=== PATIENT | male | born 1930 | race Caucasian/White ===

== ENCOUNTER 2016-05-13 11:54 | Outpatient (CLI) | payer OTHER ==
[2016-05-13 13:16] LABS: FLU INTERNAL QC INTERNAL QC VALID; RAPID FLU A POSITIVE (NEGATIVE); RAPID FLU B NEGATIVE (NEGATIVE)
== END 2016-05-13 11:55 | disposition home or self-care (01) ==
LOC: LAB 11:54
PROVIDERS: ATTEND Nurse Practitioner Family
DX: R52 Pain, unspecified (principal); J02.9 Acute pharyngitis, unspecified
CPT/HCPCS: 87651; 87804; 87880

== ENCOUNTER 2017-06-10 12:32 | Outpatient (CLI) | payer OTHER | END 2017-06-10 12:33 | disposition home or self-care (01) | LOC: FCC-LAB 12:32 | PROVIDERS: ATTEND General Practice | DX: I10 Essential (primary) hypertension (principal); K21.9 Gastro-esophageal reflux disease without esophagitis; R25.3 Fasciculation; Z12.5 Encounter for screening for malignant neoplasm of prostate; Z79.899 Other long term (current) drug therapy; Z86.008 Personal history of in-situ neoplasm of other site | CPT/HCPCS: 36415; 80053; 80061; 81001; 83090; 83735; 85007; 85025 ==

== ENCOUNTER 2017-10-05 12:11 | Outpatient (CLI) ==
--- NOTE | 2017-10-05 13:21 | CT ---
EXAM: CT chest without contrast TECHNIQUE: Helical axial CT of the chest was performed without contrast with coronal and sagittal rec onstructions. COMPARISON: Chest x-ray from 08/08/2009 HISTORY: Trauma FINDINGS: Lung parenchyma: There is no mass or nodule or large effusion or infiltrate. There is no pneumothorax . There is some minimal atelectasis. There is old granulomatous disease. Mediastinum: No pathologic hilar or mediastinal adenopathy. There are advanced coronary calcification s. There is old granulomatous disease. There is no pericardial effusion. There is some mild calcific atherosclerosis of the aorta. There is no aortic aneurysm. Upper Abdomen: No focal or acute abnormality. Osseous structures: There is a minimally displaced fracture of the distal aspect of the right elevent h rib. No other rib fractures are identified. The underlying liver is intact. There has been prior lower cervical fusion. Surrounding soft tissues including the thyroid gland are normal. No supraclavicular or axillary adeno junaid. IMPRESSION: 1. Acute right eleventh rib fracture as described. There is no pneumothorax or lung contusion and t he liver appears intact. 2. Atherosclerotic changes as above. 3. Old granulomatous disease.
--- NOTE | 2017-10-05 14:12 | US ---
EXAM: Bilateral carotid artery Doppler History: Headache and dizziness. Technique: Multiple sonographic images through the bilateral internal carotid arteries were obtained . Color duplex Doppler was used to interrogate vascular flow. Findings: The right ICA peak systolic velocities within normal limits measuring 80 cm/sec. The right ICA/cca P SV ratio is normal at 1.0. The right vertebral artery is patent and demonstrates antegrade flow. Gr ay scale images demonstrate mild plaque buildup within the right internal carotid artery. The left ICA peak systolic velocity is within normal limits measuring 50 cm/sec. The left ICA/cca PS V ratio is normal at 0.60. The left vertebral artery is patent and demonstrates antegrade flow. Gra y scale images demonstrate mild plaque buildup within the left internal carotid artery. Impression: No significant hemodynamic stenosis of the bilateral internal carotid arteries.
== END 2017-10-05 12:12 | disposition home or self-care (01) ==
LOC: RAD 12:11
PROVIDERS: ATTEND General Practice
DX: R09.89 Other specified symptoms and signs involving the circulatory and respiratory systems (principal); V89.2XXA Person injured in unspecified motor-vehicle accident, traffic, initial encounter